=== PATIENT | female | born 1985 | race Caucasian/White ===

== ENCOUNTER 2019-11-24 02:35 | Outpatient (CLI) | payer OTHER, SELFPAY ==
[2019-11-24 23:12] LABS: SARS-CoV-2 RNA PCR Negative
== END 2019-11-24 02:36 | disposition home or self-care (01) ==
LOC: ANHCOVIDDT 02:36
PROVIDERS: PCP Internal Medicine; Visit Provider Obstetrics & Gynecology
DX: Z01.812 Encounter for preprocedural laboratory examination (principal); Z20.828 Contact with and (suspected) exposure to other viral communicable diseases
CPT/HCPCS: 87635; C9803; U0003

== ENCOUNTER 2019-11-24 07:57 | Outpatient (CLI) | payer OTHER, SELFPAY ==
[2019-11-24 08:29] LABS: Hematocrit 41.6 % (37.0-47.0); Hemoglobin 14.9 g/dL (12.0-15.0)
== END 2019-11-24 07:58 | disposition home or self-care (01) ==
PROVIDERS: PCP Nurse Practitioner Family; Visit Provider Obstetrics & Gynecology
DX: N92.6 Irregular menstruation, unspecified (principal)
CPT/HCPCS: 36415; 85014; 85018

== ENCOUNTER 2019-11-27 01:08 | Day surgery (SDC) | payer OTHER, SELFPAY ==
[2019-11-20 14:20] VITALS: BMI 37.0
--- NOTE | 2019-11-22 08:20 | P.HP_ITS ---
H&P: HPI History of Present Illness Date/Time: 11/22/19 08:20 Chief complaint: Desires Sterilization, Irregular Bleeding Narrative: Cheryl Sears is a 34 year old female who is admitted for laparoscopic tubal ligation hysteroscopy dilatation curettage. She has had some irregular bleeding and some dyspareunia. She desires permanent sterilization. Alternatives were reviewed including pills, patch, injections, implants, etc. Permanence was reviewed. Failure rate of 04/999 was discussed. She asked to proceed Review of Systems Review of Systems: All systems reviewed & are unremarkable except as noted in HPI and below [facility] [place] Social History Social History Smoking status: Never smoker Alcohol intake: current Drinks per week: 1 Spiritual care concerns: No Meds Home Medications and Allergies Home Medications Medication Instructions Recorded Confirmed Type etonogestrel [Nexplanon] 1 implant SUBDERMAL ONCE 11/20/19 11/20/19 History sertraline 50 mg PO DAILY 11/20/19 11/20/19 History Allergies Allergy/AdvReac Type Severity Reaction Status Date / Time codeine AdvReac Intermediate N&V Verified 11/20/19 14:21 hydrocodone AdvReac Unknown N&V Verified 11/20/19 14:21 Exam Const: General: no acute distress Eyes: General: appearance normal, both eyes and all related structures Neck: Neck: supple and no JVD Thyroid: thyroid normal Resp: Effort & Inspection: normal respiratory effort Auscultation: clear to auscultation bilaterally Cardio: Rate: regular rate Rhythm: regular rhythm GI: Inspection: non-distended GI Palp: Yes Soft to palpation, No Tenderness to palpation present (GI) and No Guarding due to palpation present (GI) Auscultation: normal bowel sounds : External Female Exam: normal external appearance Speculum Exam - Vagina: normal appearance of the vagina and vaginal bleeding Speculum Exam - Cervix: normal appearance of the cervix Bimanual exam- vagina & uterus: uterine shape normal Skin: General skin exam: no rashes or lesions noted Extrem: General: normal to inspection and no edema Psych: Mental Status: mental status grossly normal Affect: normal affect Assessment and Plan Additional Plan impression: Desires permanent sterilization in irregular bleeding Plan: Laparoscopic bilateral tubal ligation / hysteroscopy/ dilatation and curettage
[2019-11-27] VITALS (9 sets, daily range): BP systolic 100–137; BP diastolic 69–86; PULSE 62–89; RESP 14–18; TEMP 36.4–36.7; O2SAT 93–100
--- NOTE | 2019-11-27 06:28 | WPDHPUPDATE1 ---
History and Physical Update Update Date/Time: 11/27/19 06:28 History and Physical has been reviewed, including an updated exam of the patient. There are NO changes in the patient's condition. Risks, benefits, and alternatives have been discussed and questions answered. Patient agrees to proceed with procedure.
[2019-11-27] MEDS: LACTATED RINGERS 1,000 ML 30 ML IV CONT ×2 (07:20→09:21)
[2019-11-27] MEDS: KETOROLAC 15 MG/ML VIAL (*BKC) IV PUSH (07:22)
[2019-11-27] MEDS: ACETAMINOPHEN 500 MG TABLET 1000 MG PO (07:23)
--- NOTE | 2019-11-27 07:58 | WPDANESEPPF ---
Anes - Initial Pre Proc Eval Procedure: Operation Date: 11/27/19 08:30 Proposed Procedures p Hysteroscopy Dilation and Curettage - Benton Eubanks MD s Laparoscopic Tubal Sterilization - Benton Eubanks MD Date/Time: 11/27/19 07:58 Surgeon: Benton Eubanks MD Pre Op Diagnosis: Desires Sterilization, Irregular Bleeding Patient Data Age: 34 Gender: F Height: 5 ft 3 in Weight: 97 kg Allergies Allergy/AdvReac Type Severity Reaction Status Date / Time codeine AdvReac Intermediate N&V Verified 11/27/19 07:33 hydrocodone AdvReac Unknown N&V Verified 11/27/19 07:33 Home Medications Medication Instructions Recorded Confirmed Type etonogestrel [Nexplanon] 1 implant SUBDERMAL ONCE 11/20/19 11/27/19 History sertraline 50 mg PO DAILY 11/20/19 11/27/19 History Patient hx anesthesia problems: none Family hx anesthesia problems: none [facility] Past Medical History Medical History Anxiety Depression Hypertension Social History Social History Smoking status: Never smoker Alcohol intake: current Drinks per week: 1 Spiritual care concerns: No Anes - Eval Final PreProcedure Day of Procedure 11/27/19 07:58 Patient weight: obese Heart: regular rate and rhythm Lungs: clear to auscultation Airway: Mallampati scale class II Neurological: alert and oriented Last oral intake: >/= 8 hours ASA classification: III Emergent: no Anesthetic plan: proceed Anesthesia type and monitoring: general ETT and standard monitoring Informed Consent: The patient's anesthetic plan and its attendant risks and benefits were discussed with the patient/family/POA. Questions were solicited and answers provided to the satisfaction of the patient/family/POA.
[2019-11-27] MEDS: SCOPOLAMINE 1.5 MG PATCH TRANSDERM (08:20)
--- NOTE | 2019-11-27 09:19 | SUR.OPER ---
Hysteroscopy D & C 50mL in and 50mL out
--- NOTE | 2019-11-27 09:22 | PM.PROC ---
Procedure Note - Detailed Date of procedure: 11/27/19 Pre-op diagnosis: Desires Sterilization, Irregular Bleeding Surgeon: Benton Eubanks MD Postop diagnosis: Desires sterilization /irregular bleeding /right ovarian cyst Procedure: Laparoscopic tubal ligation via silastic bands. Destruction of right ovarian cyst. Hysteroscopy. Dilatation and curettage. Anesthesia: General endotracheal EBL: 5Cc Findings: Normal-appearing pelvis with a small right ovarian cyst. On hysteroscopy irregular endometrium was seen Complications: None Description of procedure the patient was prepped and draped in the normal sterile fashion and placed in the dorsal lithotomy position. Under excellent general endotracheal anesthesia weighted speculum was placed in posterior fornix of vagina. The anterior lip of the cervix was grasped with a single-tooth tenaculum the Roberts's cannula was inserted to the cervix. The 2 were connected together from uterine manipulation. A red rubber catheter was used to drain the bladder of clear urine. The weighted speculum was removed. Gloves were changed. An infraumbilical incision made and the Veress needle passed in the abdomen. The abdomen was filled with CO2 gas [id number]. The 5mm trocar was advanced in the abdomen under direct visualization assuring no injury. The patient was placed in Trendelenburg. The 5mm trocar was advanced in the suprapubic area under direct visualization assuring no injury. The above findings were seen. The ovarian cyst was drained of clear fluid with the monopolar cautery. The right fallopian tube was grasped in a good knuckle of tube was formed with excellent blanching. The left fallopian tube was grasped in a good knuckle of tube formed on the left photo documentation was undertaken. No other abnormalities were seen. The gas removed from the abdomen the trocars were then removed. The incisions closed with 4 O Monocryl and glue. The uterus sounded to 8cm. Serial dilatation with fragmented dilators performed. This was followed by passage of the 5mm visualizing hysteroscope using normal saline as visualizing medium. Thick irregular endometrium was seen. No other abnormalities were seen. Each fallopian tube os could be seen. The uterus was scraped over the entire 360? until good grating sound was heard. When no further tissue could be removed the instruments removed. The patient was awakened. All sponge, needle, instrument counts were correct. There were no immediate complications
[2019-11-27] MEDS: fentaNYL CITRATE INJ (*CRX) 100 MCG/2 ML VIAL 25 MCG IV PUSH ×4 (09:33→09:55)
[2019-11-27] MEDS: MEPERIDINE HCL INJ (*CRX) 50 MG/ML AMPUL 25 MG IV PUSH (10:01)
[2019-11-27] MEDS: oxyCODONE HCL (*CRX) 5 MG TAB IR PO (10:30)
== END 2019-11-27 11:15 | disposition home or self-care (01) ==
PROVIDERS: PCP Nurse Practitioner Family; Visit Provider Obstetrics & Gynecology
PROC: 0U5B8ZZ Destruction of Endometrium, Via Natural or Artificial Opening Endoscopic (ICD-10-PCS; CPT 58563; principal; 2019-11-27 08:30)
PROC: (CPT 58671; 2019-11-27 08:30)
DX: N93.9 Abnormal uterine and vaginal bleeding, unspecified (principal); Z30.2 Encounter for sterilization; N83.201 Unspecified ovarian cyst, right side; F41.8 Other specified anxiety disorders; E66.9 Obesity, unspecified; Z68.37 Body mass index [BMI] 37.0-37.9, adult
CPT/HCPCS: 58558; 58671; 58662; 88305; A4264; A9270; J0330; J1100; J1885; J2175; J2250; J2405; J2704; J3010; J7030; J7120

== ENCOUNTER 2021-12-23 09:25 | Outpatient (CLI) | payer OTHER, SELFPAY ==
[2021-12-23 09:59] LABS: Basophils Percent Auto 0.9 % (0.2-1.2); Eosinophils Absolute Auto 0.1 K/mm3 (0-0.3); Eosinophils Percent Auto 1.8 % (0-4.4); Hemoglobin 14.9 g/dL (12.0-15.0); Immature Granulocyte Absolute 0.01 K/mm3 (0.00-0.031); Immature Granulocyte Percent A 0.2 % (0-0.5); Lymphocytes Percent Auto 33.5 % (18.3-44.2); Mean Corpuscular HGB Conc 33.9 g/dl (32-36); Mean Corpuscular Hemoglobin 30.3 pg (26-34); Mean Corpuscular Volume 89.6 fl (80-100); Mean Platelet Volume 10.7 fl (7.4-10.4); Monocytes Absolute Auto 0.5 K/mm3 (0.1-0.6); Monocytes Percent Auto 11.6 % (2.6-8.5); Neutrophils Absolute Auto 2.3 K/mm3 (1.3-6.7); Platelet Count Result 232 k/mm3 (150-375); Red Blood Count 4.91 M/mm3 (4.2-5.4); Red Cell Distribution Width 12.6 % (11.5-14.5); White Blood Count 4.5 K/mm3 (4.5-10.0)
== END 2021-12-23 09:26 | disposition home or self-care (01) ==
PROVIDERS: PCP Nurse Practitioner Family; Visit Provider Obstetrics & Gynecology
DX: Z01.818 Encounter for other preprocedural examination (principal); N92.6 Irregular menstruation, unspecified
CPT/HCPCS: 36415; 85025; 86850; 86900; 86901

== ENCOUNTER 2021-12-26 01:33 | Day surgery (SDC) | payer OTHER, SELFPAY ==
--- NOTE | 2021-12-19 10:26 | PC.NURSE ---
Report to the Outpatient Waiting Room, entrance under the green pavilion located off [facility], at time __0600 on date __12/26/21 . Planned Procedure Time: __729 . Time changes happen often and if your time is changed the preop area will call you the afternoon before. - You and your visitor will be asked to self-screen and do not enter if you have any COVID symptoms. - We encourage only one visitor and NO visitors under age 16 are allowed at this time. Your visitor will receive communication by the phone number that is given day of service. - The patient visitor is requested to social distance or may leave the building when not with patient due to restrictions. - A mask is required within the hospital. Patients may have clear liquids (water, carbonated beverages, clear teas, apple juice) until 3 hours prior to surgery with a maximum of 20 ounces. - No food from midnight until time of surgery - Infants may have breast milk until 4 hours before surgery, formula 6 hours prior to surgery. - Children will be allowed to drink immediately following surgery. If applicable, please bring a bottle or sippy cup to assist with drinking. Juice, water, soda, and popsicles are readily available. For infants on formula, please bring formula the day of surgery. Pacifiers are allowed. Take the following medications with a SIP of water the morning of surgery: ____NONE Medications to discontinue per physician NONE Date to take last dose Please no make-up, nail [place], hairspray, perfume, deodorant, or body powder the day of surgery. No jewelry (including any body piercings) or valuables the day of surgery, leave them at home. Please take a shower or bath the night before, or the morning of, surgery with an antibacterial soap. Wear comfortable, loose fitting clothing. Children are encouraged to wear pajamas. - Jewelry must be removed prior to entering the operating room. Rings and piercings that are not removed may be cut off. - The hospital will not accept responsibility for valuables. - Please leave all valuables, including medications, at home the day of surgery. If you are going home after surgery, a licensed pick up truck driver must drive you home. - NO public transportation without another adult. - We recommend that an adult stay with you for 24 hours following discharge. - We also recommend that you do not drive, make important decision, drink alcoholic beverages, or take any drugs that were not prescribed by your health care provider for at least 24 hours after your discharge time. Follow any additional instructions given to you from your surgeon. If you or anyone in your household have experienced Covid symptoms in the past week, please notify your surgeon or the nurse liaison at the phone number below for possible testing. Telephone instructions given to ___PATIENT and asked if any additional questions and then verbalized understanding. Patient advised to call surgeon office or pre surgery nurse liaison [phone] if any additional questions.
[2021-12-19 10:36] VITALS: BMI 38.0
--- NOTE | 2021-12-23 11:30 | PM.IMHP ---
H&P: HPI History of Present Illness Date/Time: 12/23/21 11:30 Chief Complaint: Irregular bleeding with failed ablation and dyspareunia Narrative: Since 36-year-old status post ablation who continues to bleed pain discomfort and dyspareunia. She will undergo a robotic total vaginal hysterectomy and bilateral salpingectomies. Risks and benefits were reviewed including but not exclusive of , aspiration pneumonia, bleeding, transfusion, perforation injury to bowel, bladder, ureters, or other internal organs with need for open laparotomy. She received the [employer] handout entitled hysterectomy as well as de [place] handout. She had all questions answered and asked to proceed PMFSH Past Medical History Medical History Anxiety Depression Hypertension Social History Social History Smoking status: Never smoker Alcohol intake: current Drinks per week: 1 Alcohol use details: ONE DRINK PER MONTH Spiritual care concerns: No Meds Home Medications and Allergies Home Medications Medication Instructions Recorded Confirmed Type sertraline 50 mg tablet 50 mg PO DAILY 11/20/19 12/19/21 History buspirone 5 mg tablet 5 mg PO HS 12/19/21 12/19/21 History Allergies Allergy/AdvReac Type Severity Reaction Status Date / Time codeine AdvReac Intermediate N&V Verified 12/19/21 10:17 hydrocodone AdvReac Unknown N&V Verified 12/19/21 10:17 Exam Const: General: cooperative, healthy appearing and comfortable Nutritional Appearance: average body habitus Orientation/consciousness: oriented to person, oriented to place and oriented to time HENMT: Head: normal to inspection Resp: Effort & Inspection: normal respiratory effort Cardio: Rate: regular rate Rhythm: regular rhythm Heart sounds: S1 normal heart sound present and S2 normal heart sound present GI: Inspection: normal to inspection : Speculum Exam - Vagina: normal appearance of the vagina Speculum Exam - Cervix: normal appearance of the cervix Bimanual exam- vagina & uterus: enlarged Bimanual Exam- Adnexa, other: normal adnexae Assessment and Plan Assessment and plan (1) Excessive bleeding: Code(s): R58 - Hemorrhage, not elsewhere classified Status: Acute (2) Dyspareunia: Status: Acute Plan Robotic total vaginal hysterectomy and bilateral salpingectomy
[2021-12-26] VITALS (14 sets, daily range): BP systolic 98–141; BP diastolic 58–100; PULSE 48–103; RESP 11–20; TEMP 36.4–37.2; O2SAT 94–100
[2021-12-26] MEDS: ACETAMINOPHEN 500 MG TABLET 1000 MG PO (06:14)
[2021-12-26] MEDS: KETOROLAC 15 MG/ML VIAL (*BKC) IV PUSH (06:45)
--- NOTE | 2021-12-26 06:50 | WPDHPUPDATE1 ---
History and Physical Update Update Date/Time: 12/26/21 06:50 History and Physical has been reviewed, including an updated exam of the patient. There are NO changes in the patient's condition. Risks, benefits, and alternatives have been discussed and questions answered. Patient agrees to proceed with procedure.
--- NOTE | 2021-12-26 07:00 | WPDANESEPPF ---
Anes - Initial Pre Proc Eval Procedure: Operation Date: 12/26/21 07:30 Proposed Procedures p Robotic Assisted Total Vaginal Hysterectomy with Bilateral Salpingectomy - Benton Arita MD Date/Time: 12/26/21 07:00 Surgeon: Benton Arita MD Pre Op Diagnosis: Irg Heavy Bleeding, Post Ablation, Dyspareunia Patient Data Age: 36 Gender: F Height: 1.6 m Weight: 97 kg Last Vital Signs Temp 36.4 C 12/26/21 06:22 Pulse 48 L 12/26/21 06:22 Resp 16 12/26/21 06:22 BP 141/100 H 12/26/21 06:22 Pulse Ox 100 12/26/21 06:22 O2 Del Method Room Air 12/26/21 06:22 Allergies Allergy/AdvReac Type Severity Reaction Status Date / Time codeine AdvReac Intermediate N&V Verified 12/26/21 06:10 hydrocodone AdvReac Unknown N&V Verified 12/26/21 06:10 Home Medications Medication Instructions Recorded Confirmed Type sertraline 50 mg tablet 50 mg PO DAILY 11/20/19 12/26/21 History buspirone 5 mg tablet 5 mg PO HS 12/19/21 12/26/21 History Patient hx anesthesia problems: none Family hx anesthesia problems: other (cousin did not wake up) Results Review: All pre-operative results and documents have been reviewed as part of the pre-operative evaluation. [facility] Past Medical History Medical History Anxiety Depression Hypertension Social History Social History Smoking status: Never smoker Alcohol intake: current Drinks per week: 1 Alcohol use details: ONE DRINK PER MONTH Living arrangements: with family Spiritual care concerns: No Anes - Eval Final PreProcedure Day of Procedure 12/26/21 07:00 Patient weight: obese Heart: regular rate and rhythm Lungs: clear to auscultation Airway: Mallampati scale class II Neurological: alert and oriented Last oral intake: >/= 8 hours ASA classification: II Emergent: no Anesthetic plan: proceed Anesthesia type and monitoring: general ETT and standard monitoring Results Review: All pre-operative results and documents have been reviewed as part of the pre-operative evaluation. Informed Consent: The patient's anesthetic plan and its attendant risks and benefits were discussed with the patient/family/POA. Questions were solicited and answers provided to the satisfaction of the patient/family/POA.
[2021-12-26] MEDS: LACTATED RINGERS 1,000 ML 30 ML IV CONT ×2 (07:05→09:13)
[2021-12-26] MEDS: ceFAZolin 2 GM/D5W 50 ML 2 GM/50 ML BAG IVPB (07:23)
--- NOTE | 2021-12-26 08:26 | P.OP_ITS ---
Procedure Note - Detailed Date of Procedure 12/26/21 Pre-op Diagnosis Irg Heavy Bleeding, Post Ablation, Dyspareunia Post-op Diagnosis Same Procedure Performed Robotic total vaginal hysterectomy and bilateral salpingectomy Surgeon Benton Arita MD Anesthesia General Indications 36-year-old female with bleeding and pain Findings enlarged uterus tubes status post tubal ligation normal-appearing ovaries Description of Procedure patient was prepped draped in normal sterile fashion placed in dorsal lithotomy position. Under excellent general trach anesthesia weighted speculum placed posterior vagina. Anterior lip of the cervix grasped with single-tooth tenaculum. Uterus sounded to 11cm. Serial dilatation with fragmented dilators performed followed by passes the 10. BORIS and the 3. 0.5 cold cup. Next 16 Spanish catheter was placed in bladder. Weighted speculum was removed and gloves were changed. Supraumbilical incision made Veress needle passed in the abdomen. Filled with CO2 gas to 15mm Hg. The 8mm trocar advanced in the abdomen the downside visualized with no injury seen. Patient placed in Trendelenburg and left and right lateral quadrant incisions made. The 8mm trocars advanced under direct visualization assuring no injury. The right upper quadrant incision made and the 8mm trocar advanced under direct visualization assuring no injury. The robot was docked Attention was turned to the console. The left fallopian tube was grasped and sharply dissected away from the ovary. This was left attached to its uterine origin a trujillo. In like fashion the right fallopian tube was sharply dissected away from the ovarian complex and left attached to the uterine origin. The left round ligament was grasped, burned, cut. Anterior bladder flap was formed by sharply dissecting the peritoneum and reflecting the bladder away from the cervix to the opposite round ligament was clamped, burned, cut. Next the utero- ovarian ligament on left was skeletonized to maintain the ovary. This was clamped, burned, cut and brought to the level of previously cut round ligament. Conserving the right ovary, the right utero-ovarian ligament was skeletonized clamping burning cutting and bringing this to level of previously cut round ligament. Cardinal broad ligaments on the left were then serially skeletonized by clamping burning cutting and hugging the cervix and uterus until the uterine vessels could be seen on the left. These were individually clamped, burned, cut. In like fashion the cardinal broad ligaments on the right were serially skeletonized clamping burning cutting and hugging the cervix uterus until the uterine vessels could be seen on the right. These were then individually clamped, burned, cut. Blanching the uterus was noted. Colpotomy incision was made cervix uterus and tubes removed through the vagina. The vagina closed with continuous running 0V lock from lateral edge to lateral edge back to the midline. Irrigation undertaken until clear. The pedicles all appeared clear and the robot was undocked. The gas removed from the abdomen. The trocars removed incisions closed with 4 Monocryl and glue. Patient was awakened and went to recovery in satisfactory condition. All sponge, needle, instrument counts were correct. There were no immediate complications Estimated Blood Loss 25 Drains No Packing No Pathology Yes Complications No immediate complications Condition Stable Disposition PACU
[2021-12-26] MEDS: fentaNYL CITRATE INJ (*CRX) 100 MCG/2 ML VIAL 25 MCG IV PUSH ×4 (09:13→10:05)
[2021-12-26] MEDS: DEXTROSE 5%/LACTATED RINGERS 1,000 ML 125 ML IV CONT (10:58)
[2021-12-26] MEDS: KETOROLAC 30 MG/ML VIAL (*BKC) IV PUSH (11:09)
--- NOTE | 2021-12-26 11:20 | ADMGEN ---
1043-This patient, Cheryl Sears, was admitted to OB 2nd Floor Room 289-00. Patient/family oriented to hospital policies and general routines including ID bracelet, bed and alarms, visiting hours, pain management, procedures, bathroom and other care routines, personal items, smoking policy, room service/diet, and visiting hours. Information on how to activate the Rapid Response Team has been discussed. Patient/Family are encouraged to report perceived risks to care and to ask questions if they do not understand what they are told or what they should do.
[2021-12-26] MEDS: IBUPROFEN 600 MG TABLET PO (19:30)
[2021-12-27 00:20] VITALS: BP 130/68; PULSE 89; RESP 16; TEMP 37.1
[2021-12-27 05:40] VITALS: BP 122/70; PULSE 89; RESP 16; TEMP 36.8
[2021-12-27 05:53] LABS: Basophils Percent Auto 0.2 % (0.2-1.2); Eosinophils Percent Auto 0.1 % (0-4.4); Hematocrit 38.3 % (37.0-47.0); Hemoglobin 13.1 g/dL (12.0-15.0); Immature Granulocyte Absolute 0.04 K/mm3 (0.00-0.031); Immature Granulocyte Percent A 0.4 % (0-0.5); Lymphocytes Percent Auto 15.6 % (18.3-44.2); Mean Corpuscular HGB Conc 34.2 g/dl (32-36); Mean Corpuscular Volume 90.5 fl (80-100); Mean Platelet Volume 10.6 fl (7.4-10.4); Monocytes Absolute Auto 0.6 K/mm3 (0.1-0.6); Monocytes Percent Auto 5.8 % (2.6-8.5); Neutrophils Percent Auto 77.9 % (45.5-73.1); Platelet Count Result 210 k/mm3 (150-375); Red Blood Count 4.23 M/mm3 (4.2-5.4); Red Cell Distribution Width 12.4 % (11.5-14.5); White Blood Count 10.3 K/mm3 (4.5-10.0)
[2021-12-27 08:00] VITALS: BP 112/75; PULSE 72; RESP 18; TEMP 36.8; O2SAT 99
--- NOTE | 2021-12-27 09:21 | WPDANESPN ---
Anes - Prog Note Post-Op Date/Time: 12/27/21 09:21 Cardiovascular status: normal Respiratory status: normal Airway patency: baseline Mental status: baseline Post-Op hydration status: normal Vital Signs: Last Vital Signs Temp 36.8 C 12/27/21 05:40 Pulse 89 12/27/21 05:40 Resp 16 12/27/21 05:40 BP 122/70 12/27/21 05:40 Pulse Ox 96 12/26/21 16:17 O2 Del Method Room Air 12/26/21 16:17 O2 Flow Rate 6 12/26/21 09:05 Pain Score (VAS): 04/24 I/O: Intake & Output 12/26/21 12/27/21 12/27/21 23:59 07:59 15:59 Intake Total 1710 Output Total 1800 650 Balance -90 -650 Laboratory Tests 12/27/21 05:47 12/27/21 05:47 WBC 10.3 H RBC 4.23 Hgb 13.1 Hct 38.3 MCV 90.5 MCH 31.0 MCHC 34.2 RDW 12.4 Plt Count 210 MPV 10.6 H Immature Gran % (Auto) 0.4 Neut % (Auto) 77.9 H Lymph % (Auto) 15.6 L [place] % (Auto) 5.8 Eos % (Auto) 0.1 Baso % (Auto) 0.2 Lymph # (Auto) 1.60 [place] # (Auto) 0.6 Eos # (Auto) 0.0 Baso # (Auto) 0.0 Abs Immat Gran (auto) 0.04 H Absolute Neuts (auto) 8.0 H Absolute Nucleated RBC 0.0 Nucleated RBC % 0.0 Post-procedural complaints: none Patient Feedback: Patient satisfied with anesthetic care.
[2021-12-27] MEDS: DOCUSATE SODIUM 100 MG CAPSULE PO (09:25)
[2021-12-27] MEDS: ENOXAPARIN 40 MG/0.4 ML SYRINGE SUB-Q (09:28)
--- NOTE | 2021-12-27 10:31 | PM.GYNPNOP ---
BRAZER FURNACE - A/P Assessment and plan (1) Dyspareunia: Status: Acute Assessment and Plan: A: POD#1 after robotic assisted TVH BS, doing well. P: Home to f/u 2 weeks. (2) Excessive bleeding: Code(s): R58 - Hemorrhage, not elsewhere classified Status: Acute Postoperative Procedures: Procedures Operation Date: 12/26/21 07:30 Actual Procedure Side Surgeon p Robotic Assisted Total Vaginal Hysterectomy with Bilateral Salpingectomy Bilateral Benton Arita MD Postoperative day: 1 Time Spent With Patient Time with patient: less than 15 minutes BRAZER FURNACE- PN:Subj Post-Op Subjective Date/time seen: 12/27/21 10:31 Interval history: Pain OK. Tolerating diet. Voiding. Would like to go home. Exam Narrative: AVSS I/O OK ABD soft, nontender. Incisions c/d/i. EXT nontender BRAZER FURNACE - PN: Obj Data Vital Signs Vital Signs: Vital Signs - 24 hr 12/26/21 11:22 12/26/21 11:00 12/26/21 16:17 Temperature 36.9 C 37.2 C Pulse Rate 64 81 97 Respiratory Rate 16 16 16 Blood Pressure 105/66 115/62 Pulse Oximetry 96 98 96 Oxygen Delivery Room Air 12/26/21 16:17 12/26/21 19:15 12/27/21 00:20 Temperature 36.6 C 37.1 C Pulse Rate 97 103 H 89 Respiratory Rate 16 18 16 Blood Pressure 130/61 130/68 Pulse Oximetry 96 Oxygen Delivery Room Air 12/27/21 05:40 Temperature 36.8 C Pulse Rate 89 Respiratory Rate 16 Blood Pressure 122/70 Pulse Oximetry Oxygen Delivery Intake/Output Intake/Output: Intake & Output 12/24/21 12/25/21 12/26/21 12/27/21 23:59 23:59 23:59 23:59 Intake Total 3060 Output Total 1840 650 Balance 1220 -650 Meds/Results Medications: Active Medications Generic Name Dose Route Start Last Admin Trade Name Freq PRN Reason Stop Dose Admin Docusate Sodium 100 mg 12/26/21 10:32 12/27/21 09:25 Docusate Sodium 100 Mg Capsule PO 100 mg BID ANTHONY Administration Enoxaparin Sodium 40 mg 12/26/21 10:32 12/27/21 09:28 Enoxaparin 40 Mg/0.4 Ml Syringe SUB-Q 40 mg DAILY ANTHONY Administration Ibuprofen 600 mg 12/26/21 10:32 12/26/21 19:30 Ibuprofen 600 Mg Tablet PO 600 mg Q6H PRN Administration Cramping Ketorolac Tromethamine 30 mg 12/26/21 10:32 12/26/21 11:09 Ketorolac 30 Mg/Ml Vial (*Bkc) IV PUSH 12/31/21 10:31 30 mg Q6H PRN Administration Pain Rated 4-6 Naloxone HCl 0.1 mg 12/26/21 10:32 Naloxone Hcl 0.4 Mg/Ml Vial IV PUSH Q2M PRN Respiratory rate less than 10 Ondansetron HCl 4 mg 12/26/21 10:32 Ondansetron Inj 4 Mg/2 Ml Vial IV PUSH Q6H PRN Nausea And Vomiting Simethicone 80 mg 12/26/21 10:32 Simethicone 80 Mg Tab.Chew PO Q2H PRN Gas Labs CBC & Chem 7: 12/27/21 05:47 Labs: Laboratory Results - last 24 hr 12/27/21 05:47 WBC 10.3 H RBC 4.23 Hgb 13.1 Hct 38.3 MCV 90.5 MCH 31.0 MCHC 34.2 RDW 12.4 Plt Count 210 MPV 10.6 H Immature Gran % (Auto) 0.4 Neut % (Auto) 77.9 H Lymph % (Auto) 15.6 L [place] % (Auto) 5.8 Eos % (Auto) 0.1 Baso % (Auto) 0.2 Lymph # (Auto) 1.60 [place] # (Auto) 0.6 Eos # (Auto) 0.0 Baso # (Auto) 0.0 Abs Immat Gran (auto) 0.04 H Absolute Neuts (auto) 8.0 H Absolute Nucleated RBC 0.0 Nucleated RBC % 0.0
--- NOTE | 2021-12-27 10:33 | PM.DS ---
DS: Admitting Diagnosis Discharge Date 12/27/21 Admitting Diagnosis Dyspareunia DS: Discharge Diagnosis Discharge Diagnosis (1) Dyspareunia: Status: Acute (2) Excessive bleeding: Code(s): R58 - Hemorrhage, not elsewhere classified Status: Acute DS: Summary Hospital Course Hospital Course: She was admitted for scheduled surgery. Underwent robotic assisted TVHBS. Did well postop and was able to go home on POD1. Time Spent with Patient Time attestation: Total time spent providing and/or coordinating discharge services: DS: Data Data Completed and Pending Pending studies at discharge: Pending at discharge 12/26/21 07:46 Surgical [PTH] Routine Labs on day of discharge: Labs from last 24 hours 12/27/21 05:47 WBC 10.3 H RBC 4.23 Hgb 13.1 Hct 38.3 MCV 90.5 MCH 31.0 MCHC 34.2 RDW 12.4 Plt Count 210 MPV 10.6 H Immature Gran % (Auto) 0.4 Neut % (Auto) 77.9 H Lymph % (Auto) 15.6 L [place] % (Auto) 5.8 Eos % (Auto) 0.1 Baso % (Auto) 0.2 Lymph # (Auto) 1.60 [place] # (Auto) 0.6 Eos # (Auto) 0.0 Baso # (Auto) 0.0 Abs Immat Gran (auto) 0.04 H Absolute Neuts (auto) 8.0 H Absolute Nucleated RBC 0.0 Nucleated RBC % 0.0 Discharge Plan Discharge Patient Disposition: Home, Self-Care Discharge Instructions: Call or return if temperature above 100.4? F, increased abdominal pain, increased vaginal bleeding or any new problems. Stand Alone Forms: General Discharge Instructions Follow-up/Referrals: Benton Briseno MD [Physician] - Discharge Medications: New ketorolac 10 mg tablet 10 mg PO QID 5 Days Qty: 20 0RF ibuprofen 600 mg tablet 600 mg PO Q6H PRN (Reason: cramps) Qty: 30 0RF Continued sertraline 50 mg tablet 50 mg PO DAILY Label Comments: TAKES AT HS Rx Instructions: takes at hs. buspirone 5 mg tablet 5 mg PO HS
--- NOTE | 2021-12-29 07:45 | P.DS_ITS ---
DS: Admitting Diagnosis Discharge Date 12/27/21 Admitting Diagnosis Enlarged uterus pelvic pain DS: Discharge Diagnosis Discharge Diagnosis (1) Dyspareunia: Status: Acute (2) Excessive bleeding: Code(s): R58 - Hemorrhage, not elsewhere classified Status: Acute DS: Summary Hospital Course Reason for hospitalization: Patient was admitted for robotic hysterectomy and bilateral salpingectomy Hospital Course: Patient total vaginal hysterectomy salpingo objective me on 12/26/2021. Her hospital course was unremarkable. She remained afebrile. She was up, ambu lating voiding without difficulty and generally without complaints. Time Spent with Patient Time attestation: Total time spent providing and/or coordinating discharge services: Exam Const: General: cooperative, healthy appearing and comfortable Nutritional Appearance: average body habitus Orientation/consciousness: oriented to person, oriented to place and oriented to time HENMT: Head: normal to inspection Face and sinus: no ecchymosis Resp: Effort & Inspection: normal respiratory effort GI: Inspection: normal to inspection and incision (Wounds were clean dry and intact) DS: Data Data Completed and Pending Pending studies at discharge: Pending at discharge 12/26/21 07:46 Surgical [PTH] Routine Discharge Plan Discharge Patient Disposition: Home, Self-Care Discharge Instructions: Call or return if temperature above 100.4? F, increased abdominal pain, increased vaginal bleeding or any new problems. Patient Instructions: Hysterectomy (DC) Stand Alone Forms: General Discharge Instructions Follow-up/Referrals: Benton Briseno MD [Physician] - Discharge Medications: New ketorolac 10 mg tablet 10 mg PO QID 5 Days Qty: 20 0RF ibuprofen 600 mg tablet 600 mg PO Q6H PRN (Reason: cramps) Qty: 30 0RF Continued sertraline 50 mg tablet 50 mg PO DAILY Label Comments: TAKES AT HS Rx Instructions: takes at hs. buspirone 5 mg tablet 5 mg PO HS
== END 2021-12-27 11:45 | disposition home or self-care (01) ==
LOC: ANHSURGERY 07:01 → ANHOB2 10:38
PROVIDERS: PCP Nurse Practitioner Family; Visit Provider Obstetrics & Gynecology
PROC: (CPT 58552; principal; 2021-12-26 07:30)
DX: N93.9 Abnormal uterine and vaginal bleeding, unspecified (principal); N99.85 Post endometrial ablation syndrome; N94.10 Unspecified dyspareunia; N83.8 Other noninflammatory disorders of ovary, fallopian tube and broad ligament; F41.9 Anxiety disorder, unspecified; F32.A Depression, unspecified; E66.9 Obesity, unspecified; Z68.37 Body mass index [BMI] 37.0-37.9, adult
CPT/HCPCS: 58552; S2900; 36415; 85025; 86850; 86900; 86901; 88307; 99199; A9270; J0330; J0690; J1100; J1170; J1650; J1885; J2250; J2405; J2704; J2710; J3010; J7030; J7120; J7121

== ENCOUNTER 2022-09-28 13:50 | Emergency (ER) | payer OTHER, SELFPAY ==
--- NOTE | ~2022-09-28 | XR_ITS ---
EXAMINATION: XR chest 2V DATE: 09/28/2022 14:36 INDICATION: Cough. TECHNIQUE: Frontal and lateral views of the chest were obtained. COMPARISON: None. FINDINGS: There are airspace opacities in left lower lobe, consistent with pneumonia. No pleural effu torrey or pneumothorax. The heart size is normal. There are surgical clips in the abdomen. IMPRESSION: 1. Left lower lobe pneumonia. Reviewed, dictated and finalized at location A.
--- NOTE | 2022-09-28 13:57 | ED.URI ---
HPI - URI/Sore Throat General Chief Complaint: Upper Respiratory Infection Stated Complaint: cough Time Seen by Provider: 09/28/22 14:25 Source: patient and RN notes reviewed Mode of arrival: ambulatory Limitations: no limitations History of Present Illness HPI Narrative: 37-year-old female presents with concern for 5 day history of productive cough. She reports she has also felt tired and feels like she can not get a deep breath. She reports she started taking DayQuil today MD elicited complaint: cough Related Data Home Medications Medication Instructions Recorded Confirmed sertraline 50 mg tablet 50 mg PO DAILY 11/20/19 09/28/22 buspirone 5 mg tablet 5 mg PO HS 12/19/21 09/28/22 Allergies Allergy/AdvReac Type Severity Reaction Status Date / Time codeine AdvReac Intermediate N&V Verified 09/28/22 14:11 hydrocodone AdvReac Unknown N&V Verified 09/28/22 14:11 Review of Systems Review of Systems: CONSTITUTIONAL: Reports malaise, fatigue. Denies chills, sweats, or fever. EYES: Denies visual changes, redness, or discharge. ENT: Reports rhinorrhea, congestion, sinus pain, otalgia and sore throat. CARDIOVASCULAR: Denies chest pain, palpitations, or edema. RESPIRATORY: Reports productive cough. Denies dyspnea. GASTROINTESTINAL: Denies abdominal pain, nausea, vomiting, diarrhea SKIN: Denies rash or itching. MUSCULOSKELETAL: Denies myalgia. NEUROLOGIC: Reports headache. All systems reviewed & are unremarkable except as noted in HPI and below PMFSH Past Medical History Medical History Anxiety Depression Hypertension Social History Social History Smoking status: Never smoker Alcohol intake: current Drinks per week: 1 Alcohol use details: ONE DRINK PER MONTH Living arrangements: with family Spiritual care concerns: No Comments At time of signature, agree with nursing past medical, surgical, social and family history. There is no relevant family history pertinent to the presenting complaint Exam Narrative: GENERAL: Well-appearing, well-nourished, and in no acute distress. HEAD: Normocephalic EYES: PERRLA, conjunctivae clear ENT: Nares clear. Mucous membranes moist. TM pearly tesfaye with sharp light reflex bilaterally; no tragal tenderness. Oropharynx not erythematous without lesions. Tonsils not enlarged and without exudate, no drooling, no hoarseness, no trismus, uvula midline. NECK: Supple. No lymphadenopathy CHEST: Clear to auscultation, breath sounds diminished left lower lobe. No wheezing, rhonchi, rales, or stridor. No respiratory distress, speaks in full sentences. HEART: Regular rate and rhythm. No murmur heard. SKIN: Warm, dry, no rash. NEURO: Alert and oriented x3. PSYCH: Normal mood and affect Course Course Emergency Course: Patient is aware of diagnosis, understands and agrees to treatment plan. Anticipatory guidance given. Patient agrees to follow-up as directed and is aware of reasons to seek care at the emergency department. Portions of this record may have been created with voice recognition software Level of Care: Express Care Visit Vital Signs Vital signs: Reviewed. MDM - URI/Sore Throat MDM Narrative Medical decision making narrative: Differential diagnosis considered: Petit virus, strep pharyngitis, allergic rhinitis, upper respiratory tract infection, sinusitis, rhinosinusitis, nasopharyngitis. viral pharyngitis, otitis media, otitis externa, pneumonia, bronchitis, viral cough syndrome, viral syndrome, and influenza. Exam findings show no acute concerns or changes; patient is non-toxic appearing and is in no distress. Patient is appropriate for outpatient treatment and follow-up. Lab Data Attestation: I reviewed the patient's lab results. Imaging Data My impression: Images reviewed, interpreted by radiologist, agree, see report. Radiologist's impres
[2022-09-28 14:10] VITALS: BP 149/96; PULSE 89; RESP 18; TEMP 36.8; O2SAT 100
== END 2022-09-28 14:51 | disposition home or self-care (01) ==
PROVIDERS: Emergency Provider Nurse Practitioner; PCP Nurse Practitioner Family
DX: J18.1 Lobar pneumonia, unspecified organism (principal); Z20.822 Contact with and (suspected) exposure to COVID-19; I10 Essential (primary) hypertension; F41.9 Anxiety disorder, unspecified; F32.A Depression, unspecified
CPT/HCPCS: 71046; 87426; 99213; C9803; G0463

== ENCOUNTER 2022-10-05 10:02 | Emergency (ER) | payer OTHER, SELFPAY ==
--- NOTE | ~2022-10-05 | XR_ITS ---
EXAMINATION: XR chest 2V DATE: 10/05/2022 10:41 INDICATION: Cough. TECHNIQUE: Frontal and lateral views of the chest were obtained. COMPARISON: Chest 2 views 09/28/2022 FINDINGS: There is no pneumonia, pleural effusion, or pneumothorax. The heart size is normal. Surgica l clips in the right upper quadrant are likely from cholecystectomy. IMPRESSION: 1. No acute cardiopulmonary disease. Reviewed, dictated and finalized at location A.
[2022-10-05 10:10] VITALS: BP 131/90; PULSE 80; RESP 20; TEMP 36.7; O2SAT 100
--- NOTE | 2022-10-05 10:28 | ED.URI ---
HPI - URI/Sore Throat General Chief Complaint: Upper Respiratory Infection Stated Complaint: Cough,Headache,Lt Chest Pain Source: patient Mode of arrival: ambulatory Limitations: no limitations History of Present Illness HPI Narrative: 37-year-old female presents to [facility] with complaints of continued productive cough, body aches, chills and difficulty taking a deep breath for the past 2 weeks. Patient was evaluated here on September 28, diagnosed with a left lower lobe pneumonia and was prescribed Zithromax and Medrol Dosepak at that time. Patient reports that she does not feel that her symptoms are improving. Patient is a nonsmoker. Patient denies fevers, ear pain, sore throat, runny nose or congestion. Patient denies sick contacts. Patient denies recent travel MD elicited complaint: cough Pertinent past history: pneumonia Onset (ago): week(s) (2) Exacerbating factors: nothing Relieving factors: nothing Treatments prior to arrival: antibiotics Related Data Home Medications Medication Instructions Recorded Confirmed sertraline 50 mg tablet 50 mg PO DAILY 11/20/19 10/05/22 buspirone 5 mg tablet 5 mg PO HS 12/19/21 10/05/22 Allergies Allergy/AdvReac Type Severity Reaction Status Date / Time codeine AdvReac Intermediate N&V Verified 10/05/22 10:03 hydrocodone AdvReac Intermediate N&V Verified 10/05/22 10:03 Review of Systems Constitutional: Constitutional: Reports chills, Reports fatigue, Denies fever(s) and Denies weakness ENT: Denies dizziness, Denies nasal congestion and Denies sore throat Respiratory: Respiratory: Reports cough, Denies dyspnea and Denies wheezing Comments: Difficulty taking deep breath Gastrointestinal: Gastrointestinal: Denies diarrhea, Denies nausea and Denies vomiting Musculoskeletal: Musculoskeletal: Denies arthralgias and Denies joint swelling Integumentary/Breasts: Skin/Breast: Denies rash Neurologic: Denies dizziness, Denies syncope and Denies headache(s) [facility] Past Medical History Medical History Anxiety Depression Hypertension Social History Social History Smoking status: Never smoker Alcohol intake: current Drinks per week: 1 Alcohol use details: ONE DRINK PER MONTH Living arrangements: with family Spiritual care concerns: No Comments At time of signature, I agree with nursing past medical, surgical, social and family history. There is no relevant family history pertinent to the presenting complaint. Exam Const: General: healthy appearing and no acute distress Nutritional Appearance: well nourished Orientation/consciousness: patient oriented x3 Limitations: no limitations HENMT: Head: normal to inspection Ears: external ears normal, TM's normal bilaterally and EAC's normal Face/Nose/Sinus: Normal external nose present Mouth: Yes Normal oral and palatal mucosa present Teeth and gingiva: dentition normal Throat: posterior oropharynx normal and uvula midline Neck: Neck: normal visual inspection Resp: Effort & Inspection: normal respiratory effort Auscultation: no crackles, no rales, no rhonchi, no wheezes and diminished lung sounds on the left in the lower lung marina Cardio: Rate: regular rate Rhythm: regular rhythm Heart sounds: no murmurs Skin: General skin exam: normal color Rashes: no rashes Wounds: no wounds Neuro: General: patient oriented x3 Speech: normal speech Gait exam (Neuro): Normal gait present Psych: Affect: normal affect Attitude: cooperative Course Course Level of Care: Express Care Visit Vital Signs Vital signs: Vital Signs Temperature 36.7 C 10/05/22 10:10 Pulse Rate 80 10/05/22 10:10 Respiratory Rate 20 10/05/22 10:10 Blood Pressure 131/90 10/05/22 10:10 Pulse Oximetry 100 10/05/22 10:10 Oxygen Delivery Room Air 10/05/22 10:10 Temperature 36.7 C 10/05/22 10:10
== END 2022-10-05 11:09 | disposition home or self-care (01) ==
PROVIDERS: Emergency Provider Nurse Practitioner Family; PCP Nurse Practitioner Family
DX: R05.2 Subacute cough (principal); I10 Essential (primary) hypertension; F41.9 Anxiety disorder, unspecified; F32.A Depression, unspecified
CPT/HCPCS: 71046; 99213; G0463